=== PATIENT | female | born 1960 | race Caucasian/White ===

== ENCOUNTER 2018-06-09 09:23 | Inpatient (IN) ==
[2018-06-09] MEDS ORDERED: SODIUM CHLORIDE 0.9% 500 ML IV STA (10:10)
[2018-06-09] MEDS ORDERED: ONDANSETRON 4 MG/2 ML VIAL IV STA (10:10)
[2018-06-09] MEDS: HYDROmorphone 2 MG/1 ML VIAL IV PRN ×2 (10:40→15:12)
[2018-06-09 10:51] LABS: Basophils % 0.1 % (0.0-0.8); Hematocrit 43.9 VOL% (35.7-47.0); Hemoglobin 15.1 GM/DL (12.0-16.0); Immature Granulocytes % 0.7 %; Lymphocytes # 0.7 10*3/uL (1.4-4.0); Lymphocytes % 4.8 % (21.3-54.2); Mean Corpuscular HGB Conc 34.4 GM/DL (32-36); Mean Corpuscular Hemoglobin 34 PG (27-34); Mean Corpuscular Volume 99.1 FL (87-102); Mean Platelet Volume 10.2 FL (9.6-12.0); Monocytes # 0.6 10*3/uL (0.11-0.8); Neutrophils # 12.7 10*3/uL (1.4-7.4); Neutrophils % 90.4 % (38.7-73.9); Platelet Count 242 T/CUMM (130-400); Red Blood Count 4.43 MC/CUMM (3.8-5.5); Red Cell Distribution Width 12.9 % (9.3-17.3); White Blood Count 14.1 T/CUMM (4-12)
[2018-06-09] MEDS ORDERED: ONDANSETRON 4 MG/2 ML VIAL IV PRN (11:07)
[2018-06-09 11:13] LABS: Lactic Acid 1.1 MMOL/L (0.4-2.0)
[2018-06-09 11:23] LABS: Albumin 3.5 G/DL (3.4-5.0); Apearance,Urine Slightly Hazy (Clear); Bilirubin,Total 0.5 MG/DL (0.2-1.0); Blood, Urine Negative (Negative); Calcium 9.2 MG/DL (8.5-10.1); Glucose,Urine (UA) Negative (Negative); Ketones,Urine 20 mg/dL (Negative); Mucus,Urine Many /LPF (Occasional); Nitrite,Urine Negative (Negative); Osmolality,Calculated 264.5 MOS/KG (273-304); Potassium 3.9 MMOL/L (3.5-5.1); Protein,Urine 30 MG/DL; RBC,Urine 9 /HPF (0-4); Squamous Epithelial Cell,Urine Occasional /HPF (0-10); Total Protein 7.6 G/DL (6.4-8.3); Urine Color Amber (Yellow); Urine Specific Gravity 1.028 (1.001-1.035)
[2018-06-09 11:24] LABS: Bilirubin,Urine Moderate mg/dL (Negative)
[2018-06-09 11:28] LABS: Band Neutrophils 1 % (0-10); Hypochromasia 1+; Lymphocytes 5 % (20-55); Platelet Estimate Adequate; Segmented Neutrophils 93 % (50-85); Total Cells Counted 100
[2018-06-09] MEDS: SODIUM CHLORIDE 0.9% 1,000 ML IV SCH ×2 (12:20→20:37)
[2018-06-10] MEDS: SODIUM CHLORIDE 0.9% 1,000 ML IV SCH (03:59)
[2018-06-10 07:51] VITALS: BP 112/70
== END 2018-06-10 09:48 | disposition home or self-care (01) | DRG 390 ==
LOC: N.ED 09:23 → N.EDINP 11:06 → N.2W 12:55 → N.2E 14:12
PROVIDERS: ADMIT Family Medicine; ATTEND Family Medicine